=== PATIENT | male | born 1985 | race Caucasian/White ===

== ENCOUNTER 2018-01-29 17:04 | Emergency (ER) | payer OTHER ==
[~2018-01-29] VITALS: Ht 193 cm; Wt 83.9 kg
[2018-01-29] MEDS ORDERED: VENTOLIN HFA18 GM INH (19:39)
[2018-01-29 19:42] VITALS: BP 139/80
--- NOTE | 2018-02-02 02:36 | Emergency Room Report ---
History of Present Illness General Chief Complaint: Puncture Wound Source: Patient Present Illness HPI 32-year-old male presents ED for evaluation. Patient sustained a needlestick injury today at work. 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 No active bleeding. Denies pain. Tetanus is up-to-date. Denies any other injuries. No other aggravating relieving factors. No other associated symptoms Allergies: Coded Allergies: No Known Allergies (Unverified , 01/29/18) Patient History Past Medical History: asthma Past Surgical History: none Pertinent Family History: none Social History: Denies: smoking, alcohol use, drug use Immunizations: UTD Reviewed Nursing Documentation: PMH: Agreed; PSxH: Agreed Nursing Documentation-PMH Past Medical History: No History, Except For Hx Asthma: Yes Review of Systems All Other Systems: negative except mentioned in HPI Physical Exam Vital Signs Date Time Temp Pulse Resp B/P (MAP) Pulse Ox O2 Delivery O2 Flow Rate FiO2 01/29/18 17:15 98.8 83 20 139/80 98 Room Air Sp02 EP Interpretation: reviewed, normal General Appearance: no apparent distress, alert, GCS 15, non-toxic Head: normocephalic Eyes: bilateral eye normal inspection, bilateral eye PERRL ENT: normal ENT inspection Neck: normal inspection Respiratory: normal inspection Cardiovascular #1: normal inspection Gastrointestinal: normal inspection Rectal: deferred Genitourinary: no CVA tenderness Musculoskeletal: back normal, gait/station normal, normal range of motion, non- tender Neurologic: alert, oriented x3, responsive, motor strength/tone normal, sensory intact, speech normal Psychiatric: judgement/insight normal, memory normal, mood/affect normal, no suicidal/homicidal ideation Skin: normal color, no rash, warm/dry, well hydrated Lymphatic: normal inspection Medical Decision Making Diagnostic Impression: Primary Impression: Needle stick injury ER Course 32-year-old male presents to ED with superficial needle stick injury to left index finger. Occurred while in the ER suturing another patient today Patient placed on stretcher. After initial history physical exam reveals a young male in no acute distress. There is no active bleeding or deep penetration of the left index finger. He did report bleeding. We agreed to draw labs on the 18-year-old who was being sutured. He agreed. I ordered labs which included hepatitis panel and rapid HIV test. HIV test negative. I explained risks and benefits of taking prophylaxis medications. Given low risk profile patient agrees not to start PEP prophylactic medications at this time Diagnoses-needle stick injury stable and discharged to home. Followup with PMD/employee health. Return to ED if symptoms recur or worsen Last Vital Signs Date Time Temp Pulse Resp B/P (MAP) Pulse Ox O2 Delivery O2 Flow Rate FiO2 01/29/18 19:42 98.7 83 20 139/80 98 Room Air Status: improved Disposition: HOME, SELF-CARE Condition: Stable Scripts Albuterol Sulfate (VENTOLIN HFA) 18 Gm Hfa.aer.ad 2 PUFFS INH EVERY 6 HOURS, #18 GM 0 Refills Prov: Prabhakar Mena MD 01/29/18 Patient Instructions: Needle Stick Injury, [id number] Prabhakar Mena MD Feb 02, 2018 02:36
== END 2018-01-29 19:39 | disposition home or self-care (01) ==
LOC: EMR 17:38
DX: S60.941A Unspecified superficial injury of left index finger, initial encounter (principal); W46.0XXA Contact with hypodermic needle, initial encounter; Y93.F9 Activity, other caregiving; Y92.239 Unspecified place in hospital as the place of occurrence of the external cause; Y99.0 Civilian activity done for income or pay; J45.909 Unspecified asthma, uncomplicated
CPT/HCPCS: 86703; 86803; 87517; 99282